=== PATIENT | male | born 1995 | race Caucasian/White ===

== ENCOUNTER 2016-10-28 18:10 | Emergency (ER) | payer BC, OTHER ==
[~2016-10-28] VITALS: Ht 188 cm; Wt 62.6 kg
[2016-10-28 18:14] VITALS: BP 134/85
== END 2016-10-28 20:56 | disposition left against medical advice (07) ==
LOC: ER 18:19
DX: S01.91XA Laceration without foreign body of unspecified part of head, initial encounter (principal); Z53.21 Procedure and treatment not carried out due to patient leaving prior to being seen by health care provider; X58.XXXA Exposure to other specified factors, initial encounter; Y93.89 Activity, other specified; Y92.89 Other specified places as the place of occurrence of the external cause; Y99.8 Other external cause status